=== PATIENT | female | born 1950 | race Caucasian/White ===

== ENCOUNTER → 2017-11-08 | Outpatient (CLI) | payer MEDICARE ==
[~2017-11-08] MED LIST: ASPI325T17 PO; CARV3.122 PO; OMEG1CAP23 PO; TOPI15CA PO
== END | disposition home or self-care (01) ==
LOC: CFH 10:21
PROVIDERS: ATTEND Internal Medicine
DX: Z12.31 Encounter for screening mammogram for malignant neoplasm of breast (principal)
CPT/HCPCS: 77063; 77067

== ENCOUNTER 2018-09-19 12:19 | Emergency (ER) | payer MEDICARE ==
[2018-09-19 12:58] VITALS: BP 140/81
[2018-09-19] MEDS ORDERED: COCAINE TOPICAL SOLN 4%, 4ML TP ONE (14:00)
[2018-09-19] MEDS ORDERED: SILVER NITRATE STICK TP ONE ×2 (14:00→14:11)
[2018-09-19] MEDS ORDERED: PLEASE ENTER HEIGHT MC SCH (14:00)
[2018-09-19] MEDS ORDERED: OXYMETAZOLINE NASAL SPRAY 0.05%, 15ML NAS ONE (14:00)
[2018-09-19] MEDS ORDERED: OXYMETAZOLINE NASAL SPRAY 0.05%, 15ML ONE (14:10)
[2018-09-19] MEDS ORDERED: COCAINE TOPICAL SOLN 4%, 4ML ONE (14:11)
[2018-09-19] MEDS ORDERED: BACITRACIN ZINC OINT 500U/GM, 0.9 GM ONE (14:30)
[2018-09-20] MEDS ORDERED: LISI-167 PO (00:14)
[2018-09-20] MEDS ORDERED: OMEP-110 PO (00:15)
== END 2018-09-19 14:51 | disposition home or self-care (01) ==
LOC: ED 14:50
DX: S02.2XXA Fracture of nasal bones, initial encounter for closed fracture (principal); R04.0 Epistaxis; W18.30XA Fall on same level, unspecified, initial encounter; Y93.89 Activity, other specified; Y92.89 Other specified places as the place of occurrence of the external cause; Y99.8 Other external cause status
CPT/HCPCS: 30901; 70486; 99284

== ENCOUNTER 2018-09-20 00:07 | Emergency (ER) | payer MEDICARE ==
[~2018-09-20] VITALS: Ht 170.2 cm; Wt 74.0 kg
[2018-09-20 00:09] VITALS: BP 140/80
[2018-09-20] MEDS ORDERED: LISI-167 PO (00:14)
[2018-09-20] MEDS ORDERED: OMEP-110 PO (00:15)
== END 2018-09-20 01:03 | disposition home or self-care (01) ==
LOC: ED 00:28
DX: R04.0 Epistaxis (principal)
CPT/HCPCS: 99281

== ENCOUNTER → 2020-03-22 | Outpatient (CLI) | payer MEDICARE ==
[~2020-03-22] MED LIST changes: +LISI-167 PO; +OMEP-110 PO; -TOPI15CA PO; +TOPI15CA10 PO
== END | disposition home or self-care (01) ==
LOC: CFH 06:53
PROVIDERS: ATTEND Internal Medicine
DX: Z12.31 Encounter for screening mammogram for malignant neoplasm of breast (principal); R94.5 Abnormal results of liver function studies
CPT/HCPCS: 76700; 77063; 77067